=== PATIENT | female | born 1995 | race Caucasian/White ===

== ENCOUNTER 2017-08-18 09:38 | Emergency (ER) | payer SELFPAY ==
[~2017-08-18] VITALS: Ht 162.6 cm; Wt 65.0 kg
[2017-08-18 10:41] LABS: BASOPHILS % 0.5 % (0.0-2.0); EOSINOPHILS % 0.3 % (0.0-5.0); HEMATOCRIT. 39.4 % (36.0-48.0); HEMOGLOBIN. 13.5 g/dL (12.0-16.0); LYMPHOCYTES % 26.5 % (20.0-50.0); MEAN CORPUSCULAR HEMOGLOBIN 29.6 pg (28.0-32.0); MEAN CORPUSCULAR VOLUME 86.3 fL (81.0-99.0); MEAN PLATELET VOLUME 8.2 fl (7.4-10.4); MONOCYTES % 10.1 % (2.0-8.0); NEUTROPHILS % 62.6 % (40.0-76.0); PLATELET 249 x1000/uL (130-400); RED BLOOD CELL COUNT 4.56 mill/uL (4.2-5.4)
[2017-08-18 10:49] LABS: CHLORIDE 106 mEq/L (98-107)
[2017-08-18 10:49] LABS: CLARITY URINE CLEAR (CLEAR); COLOR URINE YELLOW (YELLOW); KETONES URINE NEGATIVE (NEGATIVE); LEUKOCYTE ESTERASE URINE NEGATIVE (NEGATIVE); NITRITE URINE NEGATIVE (NEGATIVE); OCCULT BLOOD URINE NEGATIVE (NEGATIVE); PROTEIN URINE NEGATIVE (NEGATIVE); SPECIFIC GRAVITY URINE 1.012 (1.005-1.030); UROBILINOGEN URINE 0.2 E.U./dL (0.2-1.0)
[2017-08-18 10:51] LABS: PROTHROMBIN TIME 10.7 sec (9.4-11.6)
[2017-08-18 11:15] LABS: B-HCG QUANTITATIVE 1083 mIU/mL (<3)
[2017-08-18 14:19] VITALS: BP 116/76
== END 2017-08-18 14:49 | disposition home or self-care (01) ==
LOC: ER 10:14
DX: O21.9 Vomiting of pregnancy, unspecified (principal); R10.2 Pelvic and perineal pain; R11.0 Nausea; Z3A.01 Less than 8 weeks gestation of pregnancy; Z87.891 Personal history of nicotine dependence
CPT/HCPCS: 36415; 76801; 76817; 80053; 81003; 81025; 83690; 84702; 85025; 85610; 99285; Z7610

== ENCOUNTER 2019-01-11 21:38 | Emergency (ER) | payer MEDICAID, OTHER ==
[~2019-01-11] VITALS: Ht 167.6 cm; Wt 64.0 kg
[2019-01-11] MEDS ORDERED: MAGNESIUM/ALUMINUM HYDROXIDE/SIMETHICONE 30ML UDC PO ONE (22:30)
[2019-01-11] MEDS ORDERED: VISCOUS LIDOCAINE 2% 15 ML UDC PO ONE (22:30)
[2019-01-11 22:50] LABS: BASOPHILS % 0.4 % (0.0-2.0); EOSINOPHILS % 0.5 % (0.0-5.0); HEMATOCRIT. 36.5 % (36.0-48.0); HEMOGLOBIN. 12.2 g/dL (12.0-16.0); MEAN CORPUSCULAR HEMOGLOBIN 26.8 pg (28.0-32.0); MONOCYTES % 5.1 % (2.0-8.0); PLATELET 293 x1000/uL (130-400); RED BLOOD CELL COUNT 4.57 mill/uL (4.2-5.4); RED CELL DISTRIBUTION WIDTH 15.3 % (11.6-14.6)
[2019-01-11 22:53] LABS: CHLORIDE 108 mEq/L (98-107)
[2019-01-12 02:43] VITALS: BP 113/75
== END 2019-01-12 02:46 | disposition home or self-care (01) ==
LOC: ER 21:44
DX: R10.9 Unspecified abdominal pain (principal); Z88.3 Allergy status to other anti-infective agents
CPT/HCPCS: 36415; 80053; 83880; 84484; 85025; 93005; 99284; Z7610